=== PATIENT | female | born 1935 | race Caucasian/White ===

== ENCOUNTER 2016-10-07 14:57 | Observation (INO) ==
--- NOTE | 2016-10-07 15:25 | Emergency Department Note ---
Disposition Clinical Impression: Syncope and collapse Disposition: Admitted As Inpatient Condition: Fair Forms: ED Satisfaction Letter Time of Disposition: 17:44 (brent anaya) Syncope HPI - General Chief Complaint: ED Syncope Stated Complaint: Syncope / AMS Time Seen by Provider: 10/07/16 15:19 Source: patient Mode of arrival: ambulatory Limitations: physical limitation Nursing Notes Reviewed: Yes Vital Signs Reviewed: Yes - History of Present Illness HPI Narrative: 80-year-old female brought in by family for having increasing weakness debilitated state unable to get up and he related around the house he is unsure whether she possibly had a stroke she apparently had an episode where she collapsed some possible seizure activity said that she was trembling but she was alert and count conversations denies any diarrhea melena hematochezia weight gain pt is having poor appetitis Pt Subjective Complaint: collapsed Onset (ago): Just MORNING SHOW HOST Description of Event: other (weakness) Prodromal Symptoms: shortness of breath, nausea/vomiting, other (near syncope and pacer) Witnessed: yes - by bystander Context: during exertion Injuries Sustained Associated with Event: none Current Symptoms: back to baseline History: previous syncopal episode, history of CAD, pacemaker, prior work-ups Treatments prior to arrival: none - Related Data Home Medications Medication Instructions Recorded Confirmed Amiodarone HCl [Pacerone] 200 mg PO DAILY 10/07/16 10/07/16 Apixaban [Eliquis] 2.5 mg PO BID 10/07/16 10/07/16 Atorvastatin [Lipitor] 40 mg PO HS 10/07/16 10/07/16 Donepezil HCl [Aricept] 5 mg PO HS 10/07/16 10/07/16 Fludrocortisone Acetate [Florinef] 0.1 mg PO DAILY 10/07/16 10/07/16 Levothyroxine [Synthroid] 100 mcg PO DAILY 10/07/16 10/07/16 Allergies Allergy/AdvReac Type Severity Reaction Status Date / Time Penicillins Allergy Anaphylaxis Verified 10/07/16 15:03 All systems ED: reviewed and negative except as stated. Constitutional: Reports: weakness. Denies: fever, chills Eyes: Denies: vision change ENT ED: Denies: ear pain, throat pain Cardiovascular: Reports: dyspnea on exertion. Denies: chest pain, palpitations Respiratory: Denies: cough, dyspnea, wheezes Gastrointestinal: Denies: abdominal pain, nausea, vomiting Genitourinary: Denies: urgency, dysuria, frequency Musculoskeletal: Reports: myalgia. Denies: back pain, neck pain Integumentary: Denies: rash, abrasion Neurological: Reports: weakness. Denies: headache Psychiatric: Denies: anxiety Endocrine: Reports: fatigue, heat or cold intolerance Hematological/Lymphatic: Denies: easy bleeding Allergic/Immunologic: Denies: facial swelling Past Medical History - Past Medical History Attestation: Yes The following information was validated with the patient. Source: patient, old records reviewed, nursing notes reviewed Physical Exam - General Limitations: no limitations General appearance: alert, in no apparent distress, appears intoxicated, cachectic, other (fraii) - Head Head exam: atraumatic, normocephalic, normal inspection - Eye Eye exam: Present: normal appearance, PERRL, EOMI - ENT ENT exam: normal oropharynx, mucous membranes moist, TM's normal bilaterally, normal external ear exam - Neck Neck exam: Present: normal inspection, full ROM, trachea midline - Chest Chest inspection: Present: normal inspection, symmetric chest wall rise - Respiratory Respiratory exam: Present: normal lung sounds bilaterally - Cardiovascular Cardiovascular exam: Present: regular rate, normal rhythm, normal heart sounds - Abdominal Exam Abdominal exam: Present: soft, Non-Tender, normal bowel sounds - Extremities Exam Extremities exam: Present: normal inspection, full ROM, normal capillary refill , other (Or muscle wasting of the extremities she is able to follow commands with full twists it will hold her hands there is no drift noted with exam vascular is intact as well as neurosensory) - Expanded Upper Extremity Exam Shoulder exam: Present: normal inspection, full ROM Arm exam: Present: normal inspection, full ROM Elbow exam: Present: normal inspection, full ROM Forearm/Wrist exam: Present: normal inspection, full ROM Hand exam: Present: normal inspection, full ROM Vascular exam: Normal: capillary refill, radial pulse - Expanded Lower Extremity Exam Hip/Pelvis exam: Present: normal inspection, full ROM Upper leg exam: Present: normal inspection, full ROM Knee exam: Present: normal inspection, full ROM Lower leg exam: Present: normal inspection, full ROM Ankle exam: Present: normal inspection, full ROM Foot/toe exam: Present: normal inspection, full ROM Neurovascular/Tendon exam: Present: normal capillary refill, normal fine/light touch. Absent: motor deficit, sensory deficit, tendon deficit Gait: not tested/not observed - Back Exam Back exam: Present: normal inspection, full ROM - Neurological Exam Neurological exam: Present: alert, oriented X3, CN II-XII intact, normal gait. Absent: motor sensory deficit - Psychiatric Psychiatric exam: Present: flat affect - Skin Skin exam: Present: warm, dry, intact, normal color Course Course Narrative: Patient seen and examined and afterward it was not with all results back patient still barely able to get up and even bear any weight is grossly weak profoundly noted as a result the patient will be admitted for observation will have health and social care teacher contact the family and discuss further management the son is concerned about respiratory versus possibility of retirement placement will repeat the labs during the course like make sure there is not an underlying myocardial infarction CT of the head was done which showed no evidence of an acute stroke this does not exclude the possibility of TIA patient was admitted for observation Vital Signs Temperature 99.1 F 10/07/16 15:09 Pulse Rate 69 10/07/16 15:09 Respiratory Rate 14 10/07/16 15:09 Blood Pressure 89/50 10/07/16 15:09 O2 Sat by Pulse Oximetry 96 10/07/16 15:09 Temperature 99.1 F 10/07/16 15:09 Pulse Rate 69 10/07/16 15:09 Respiratory Rate 14 10/07/16 15:09 Blood Pressure 89/50 10/07/16 15:09 O2 Sat by Pulse Oximetry 96 10/07/16 15:09 Oxygen Delivery Oxygen Delivery Nasal Cannula Syncope - Differential Diagnosis Likely: syncope due to orthostatic hypotension, vasovagal syncope - Medical Records Medical records reviewed: Yes I reviewed the patient's medical records. - Lab Data Lab results reviewed: Yes I reviewed the patient's lab results. - Radiology Data Radiology results reviewed: Yes I reviewed the patient's radiology results. ITS Impressions Chest X-Ray 10/07/16 15:19 IMPRESSION: No acute process D/ / Ruben Cobian MD / Ruebn Cobian MD Interpreting Provider: Ruben Cobian MD Head CT 10/07/16 15:19 IMPRESSION: No acute intracranial abnormality. There is clinical concern for acute cerebral infarct, an MRI is a more sensitive study. D/ / Cecilia Arriaza Cha, MD / Cecilia Arriaza Cha, MD Interpreting Provider: Cecilia Arriaza Cha, MD - EKG Data EKG attestation: Yes I reviewed and interpreted this EKG. EKG results narrative: Rhythm NSR 1degree av block Heart Rate 65 MD 213 QRS 93 QT 459 Axes -30 Critical Care Time Critical Care Time: No
[2016-10-07 15:53] LABS: Basophils % 0.4 %; Eosinophils % 0.3 %; Hematocrit 40.5 % (35.3-44.9); Hemoglobin 13.2 g/dL (11.5-15.4); Immature Granulocytes % 0.4 % (0-4); Lymphocytes # 0.9 K/mcL (0.6-4.6); Lymphocytes % 9.5 %; Mean Corpuscular HGB Conc 32.6 g/dL (31.6-35.5); Mean Corpuscular Hemoglobin 31.2 pg (28.0-33.3); Mean Corpuscular Volume 95.7 fL (83.0-100.0); Mean Platelet Volume 9.3 fL (9.4-12.4); Monocytes # 0.6 K/mcL (0.0-1.3); Monocytes % 6.4 %; Neutrophils # 7.5 K/mcL (1.6-8.9); Platelet Count 312 K/mcL (140-400); Red Blood Count 4.23 M/mcL (3.82-4.97); Red Cell Distribution Width 14.5 % (11.5-14.5)
[2016-10-07 16:06] LABS: INR 1.7; Prothrombin Time 18.6 Seconds (9.4-12.1)
[2016-10-07 16:12] LABS: Alanine Aminotransferase 55 Units/L (0-55); Albumin 3.1 g/dL (3.5-5.0); Alkaline Phosphatase 119 Units/L (38-126); Aspartate Amino Transferase 56 Units/L (5-34); BUN/Creatinine Ratio 19 (6-26); Bilirubin,Total 0.5 mg/dL (0.2-1.2); Blood Urea Nitrogen 18 mg/dL (7-20); Calcium 8.8 mg/dL (8.6-10.8); Carbon Dioxide 21 mEq/L (19-29); Chloride 109 mEq/L (98-109); Globulin 3.2 g/dL (2.4-3.5); Glucose 118 mg/dL (70-99); Osmolality,Calculated 297 (280-300); Potassium 3.5 mEq/L (3.5-4.5); Sodium 142 mEq/L (136-145); Total Protein 6.3 g/dL (6.0-8.3); eGFR For African Americans > 60 (> 60); eGFR For Non-African Americans 57 (> 60)
[2016-10-07 17:12] LABS: Bilirubin,Urine Small (Negative); Blood,Urine Negative (Negative); Clarity,Urine Clear (Clear); Glucose,Urine (UA) Normal (Normal); Ketones,Urine Trace mg/dL (Negative); Leukocyte Esterase,Urine Negative (Negative); Nitrite,Urine Negative (Negative); PH,Urine 5.5 pH Units (5.0-8.0); Protein,Urine 30 mg/dL (Neg-Trace); Specific Gravity,Urine >= 1.030 (1.010-1.025)
[2016-10-07 17:19] LABS: Color,Urine Dark Yellow (Yellow)
[2016-10-07 17:21] LABS: RBC,Urine 0-3 per hpf (0-3); Squamous Epithelial Cell,Urine Few per lpf (None-Few); WBC,Urine 15-30 per hpf (0-3)
[2016-10-07 17:22] LABS: Amorphous Sediment,Urine Moderate (Few); Bacteria,Urine Few per hpf (None-Few); Granular Casts,Urine Few per lpf (None Seen); Hyaline Casts,Urine Few per lpf (None-Few); Mucus,Urine Few (Few); Renal Epithelial Cells,Urine Few per hpf (None-Few); Transitional Epi Cells,Urine Few per hpf (None-Few)
[2016-10-07] MEDS ORDERED: Naloxone 0.4 MG/ML INJ IVP PRN (18:51)
[2016-10-07] MEDS: 0.9 % Sodium Chloride 1,000 ML IVC SCH (21:20)
[2016-10-07] MEDS: APIXABAN 5 MG TABLET PO SCH (21:26)
[2016-10-08 03:23] LABS: INR 1.6; Prothrombin Time 17.5 Seconds (9.4-12.1)
[2016-10-08 03:25] LABS: Basophils # 0.1 K/mcL (0.0-0.2); Basophils % 0.8 %; Eosinophils # 0.1 K/mcL (0.0-0.6); Eosinophils % 1.4 %; Hematocrit 33.6 % (35.3-44.9); Hemoglobin 11.2 g/dL (11.5-15.4); Immature Granulocytes % 0.9 % (0-4); Lymphocytes # 1.7 K/mcL (0.6-4.6); Lymphocytes % 26.1 %; Mean Corpuscular HGB Conc 33.3 g/dL (31.6-35.5); Mean Corpuscular Hemoglobin 30.9 pg (28.0-33.3); Mean Corpuscular Volume 92.8 fL (83.0-100.0); Mean Platelet Volume 9.4 fL (9.4-12.4); Monocytes # 0.7 K/mcL (0.0-1.3); Monocytes % 10.1 %; Neutrophils # 4.1 K/mcL (1.6-8.9); Platelet Count 305 K/mcL (140-400); Red Blood Count 3.62 M/mcL (3.82-4.97); Red Cell Distribution Width 14.6 % (11.5-14.5); Segmented Neutrophils % 60.7 %
[2016-10-08 03:26] LABS: Activated Partial Thrombo Time 35.6 Seconds (26.0-36.0)
[2016-10-08 03:34] LABS: BUN/Creatinine Ratio 26 (6-26); Blood Urea Nitrogen 20 mg/dL (7-20); Calcium 8.3 mg/dL (8.6-10.8); Carbon Dioxide 25 mEq/L (19-29); Chloride 110 mEq/L (98-109); Glucose 84 mg/dL (70-99); Magnesium 1.6 mg/dL (1.6-2.6); Osmolality,Calculated 298 (280-300); Phosphorous 3.7 mg/dL (2.3-4.7); Potassium 3.6 mEq/L (3.5-4.5); Sodium 143 mEq/L (136-145); eGFR For African Americans > 60 (> 60); eGFR For Non-African Americans > 60 (> 60)
[2016-10-08] MEDS: *HR* Amiodarone 200 MG TABLET PO SCH (09:29)
[2016-10-08] MEDS: APIXABAN 5 MG TABLET PO SCH ×2 (09:29→20:41)
--- NOTE | 2016-10-08 11:30 | Electrocardiograph Report ---
[facility] Test Date: 2016-10-07 Pat Name: Lulu Leiva Department: 9201 Room: [facility] Gender: F Slagger: Lucius : 1935 Requested By: Claudia Feldman Order Number: [id number] Reading MD: Blaine Vela MD Measurements Intervals Manter Rate: 65 P: 80 AK: 213 QRS: -30 QRSD: 93 T: 53 QT: 459 QTc: 470 Interpretive Statements SINUS RHYTHM WITH FIRST DEGREE AV BLOCK BORDERLINE LEFT AXIS DEVIATION POOR R WAVE PROGRESSION Electronically Signed On 10-08-16 11:29:19 EST by Blaine Vela MD
--- NOTE | 2016-10-08 11:48 | Internal Med History&Physical ---
Date of Encounter: 10/08/16 Time of Encounter: 11:15 Assessment and Plan (1) Syncope and collapse Current visit: Yes Status: Acute Etiology is not obvious. She has been placed on telemetry. Orthostatic vital signs will be checked. (2) Orthostatic hypotension Current visit: Yes Status: Chronic Presumed based on Florinef use. We will check orthostatic vital signs. (3) Hypothyroidism Current visit: Yes Status: Chronic TSH was normal at 3.256 on admission labs. Continue present dose Synthroid Qualifiers: Hypothyroidism type: unspecified Qualified Code(s): E03.9 - Hypothyroidism , unspecified (4) Dementia Current visit: Yes Status: Chronic Will order MMSE and B12 level. Continue Aricept Qualifiers: Dementia type: unspecified type Dementia behavioral disturbance: without behavioral disturbance Qualified Code(s): F03.90 - Unspecified dementia without behavioral disturbance (5) Hyperlipidemia Current visit: Yes Status: Chronic Presumed based on Lipitor use. Continue Lipitor Qualifiers: Hyperlipidemia type: unspecified Qualified Code(s): E78.5 - Hyperlipidemia , unspecified Internal Medicine - H&P: HPI Chief complaint: Syncope Admitted From: Home Plans for Post Hospital Care: Home History of present illness: Ms. Leiva is a 80 year old female who was traveling with her nephew from [place] to [place] when she had a syncopal episode at a rest area in [facility]. Her nephew reports she also had "jerking" movements. She was brought to the emergency room and evaluated. She was admitted to [facility] for ongoing care needs. She has diagnosis of dementia and is on Aricept. She cannot supply any details of her history. She denies any "memory problems". She denies large distribution strokes or previous seizures or syncopal episodes. She denies pain at this time and states she feels back to her baseline. Past Med Surg Social Fam HX - Past Medical History Medical history: hyperlipidemia, hypertension Psychiatric history: no psych history - Past Surgical History Surgical History: pacemaker/AICD - Social History Smoking Status: Current every day smoker Smokeless Tobacco Status: No Alcohol use: none Drug use: none Internal Medicine - H&P: Meds Amiodarone HCl [Pacerone] 200 mg PO DAILY 10/07/16 [History] Apixaban [Eliquis] 2.5 mg PO BID 10/07/16 [History] Atorvastatin [Lipitor] 40 mg PO HS 10/07/16 [History] Donepezil HCl [Aricept] 5 mg PO HS 10/07/16 [History] Fludrocortisone Acetate [Florinef] 0.1 mg PO DAILY 10/07/16 [History] Levothyroxine [Synthroid] 100 mcg PO DAILY 10/07/16 [History] Allergies Penicillins Allergy (Verified 10/07/16 15:03) Anaphylaxis All Systems PM: A 10-system review of systems was performed and is negative for pertinent findings except as documented above in the HPI. Review of systems: Gen.: She states her weight has been stable the past few months Cardiovascular: She denies PA heart failure angina DVT or pulmonary embolus. She is on Florinef but does not know the reason for this. She denies atrial fibrillation but is on Pacerone and Eliquis Respiratory: She states she smoked from age 18 to her mid 30s. She denies chronic lung disease and does not use home oxygen. GI: She denies disorders of her liver gallbladder or exocrine pancreas : She denies hematuria dysuria or kidney stones Neurologic: as per history of present illness Endocrine: She has presumed hypothyroidism and hyperlipidemia based on her medication list. She denies diabetes. Hematology/oncology: She denies blood disorders cancers or anemia Psychiatric: She denies anxiety depression or other mental health issues Musk skeletal: She has DJD but denies specific bone joint or muscle disorders. - Constitutional Vitals: Temp Pulse Resp BP Pulse Ox 98.5 F 71 16 127/72 94 L 10/08/16 06:59 10/08/16 06:59 10/08/16 06:59 10/08/16 06:59 10/08/16 04:20 Exam: Gen.: She is a well-developed well-nourished female who appears in no severe distress at present time. HEENT: Head is atraumatic and normocephalic. Eyes: EOMI. There is no scleral icterus. Mouth: Mucosa is moist. Neck: Supple and nontender. There is no thyromegaly or adenopathy noted. Heart: Regular without murmurs gallops or ectopics. Lungs: No wheezes or crackles are heard. Abdomen: Soft and nontender. There are no masses or guarding noted. She has a longitudinal midline scar that is well-healed. She does not know what surgery was performed resulting in that scar. She has right upper quadrant oblique scar consistent with past cholecystectomy but she did not recall having the procedure either. Extremities: She has mild DJD changes of her hands. She has no cyanosis edema or clubbing noted. Neurologic: Mental status: She has impaired memory and insight. She does know her age but was confused and unable to recall many details of her history. She does not know why she came to the hospital. Cranial nerves: Smile is symmetric. Forehead wrinkles bilaterally. Tongue protrudes midline. EOMI. Motor: There is no pronator drift. Cerebellar: Finger to nose is intact bilaterally. Skin: Warm and dry Internal Med - H&P Results - Labs CBC & Chem 7: 10/08/16 03:05 10/08/16 03:05 Labs: Short CBC 10/08/16 Range/Units 03:05 WBC 6.7 (4.3-11.1) K/mcL Hgb 11.2 L D (11.5-15.4) g/dL Hct 33.6 L (35.3-44.9) % Plt Count 305 (140-400) K/mcL Neutrophils # 4.1 (1.6-8.9) K/mcL BMP 10/08/16 03:05 Sodium 143 Potassium 3.6 Chloride 110 H Carbon Dioxide 25 BUN 20 Creatinine 0.78 Glucose 84 Calcium 8.3 L Cardiac Enzymes 10/07/16 10/08/16 Range/Units 21:20 03:05 Troponin I 0.01 0.00 (0-0.03) ng/mL
[2016-10-09] MEDS: 0.9 % Sodium Chloride 1,000 ML IVC SCH (07:30)
[2016-10-09] MEDS: APIXABAN 5 MG TABLET PO SCH ×2 (09:29→22:06)
[2016-10-09] MEDS: *HR* Amiodarone 200 MG TABLET PO SCH (09:30)
--- NOTE | 2016-10-09 22:49 | Internal Med Progress Note ---
Date of Encounter: 10/09/16 Time of Encounter: 22:46 - Assessment and plan (1) Syncope and collapse Current Visit: Yes Status: Acute Assessment and plan: October 09. Continue telemetry, vital signs. Still unsure what led to the initial syncope. (2) Dementia Current Visit: Yes Status: Chronic Assessment and plan: October 09. Continue Aricept B12 level was normal and MMSE was 18 Qualifiers: Dementia type: unspecified type Dementia behavioral disturbance: without behavioral disturbance Qualified Code(s): F03.90 - Unspecified dementia without behavioral disturbance (3) Hyperlipidemia Current Visit: Yes Status: Chronic Assessment and plan: October 09. Stable continue Lipitor Qualifiers: Hyperlipidemia type: unspecified Qualified Code(s): E78.5 - Hyperlipidemia , unspecified (4) Hypothyroidism Current Visit: Yes Status: Chronic Assessment and plan: October 09. Stable continue levothyroxin Qualifiers: Hypothyroidism type: unspecified Qualified Code(s): E03.9 - Hypothyroidism , unspecified (5) Orthostatic hypotension Current Visit: Yes Status: Chronic Assessment and plan: October 09. Overall slightly improving. Patient education when she gets up to stand for a few seconds to her headache clears before she starts walking. - Time Spent With Patient 25 - 35 minutes (Therapeutic rapport) - Subjective Interval history: 80-year-old female presented to the emergency room after having a syncopal episode in [facility]. She is apparently traveling with her nephew from [place] to [place]. Dr. Motley admitted her to Dr. Issa's service. Refills she seems stronger. Her blood pressure was hypotensive when she first came in but now it is coming back up there does not seem to be a component of orthostasis to it is so concerned infection blood cultures and urine cultures were negative. Her INR was 1.6 hemoglobin 11.2. She is getting stronger questions whether or not she will go to a extended care facility or if her nephew take her home. Answered questions addressed her concerns. - Constitutional Vitals: Temp Pulse Resp BP Pulse Ox 98.7 F 63 16 133/62 97 10/09/16 19:24 10/09/16 19:24 10/09/16 19:24 10/09/16 19:24 10/09/16 19:24 Exam: General: Alert and oriented, no acute distress Lungs: Clear to auscultation bilaterally without wheezing or crackles Heart: Regular rate and rythms without murmer or rubs Abdomen: Soft, nontender, Extremities: no edema, redness Internal Medicine: Result - Labs CBC & Chem 7: 10/08/16 03:05 10/08/16 03:05 - ABG Interpretation ABG results: PT/INR, D-dimer PT 17.5 Seconds (9.4-12.1) H 10/08/16 03:05 Consult Discharge Plan - Plan Referrals: NO,PCP [Primary Care Provider] - 1 week
[2016-10-10] MEDS: *HR* Amiodarone 200 MG TABLET PO SCH (10:32)
[2016-10-10] MEDS: APIXABAN 5 MG TABLET PO SCH ×2 (10:46→21:32)
--- NOTE | 2016-10-10 20:38 | Internal Med Progress Note ---
Date of Encounter: 10/10/16 Time of Encounter: 20:29 - Assessment and plan (1) Syncope and collapse Current Visit: Yes Status: Acute Assessment and plan: October 09. Continue telemetry, vital signs. Still unsure what led to the initial syncope. October 10. Change the Aricept and Namenda which could have been part of the syncope because of the interaction with Cordarone (2) Orthostatic hypotension Current Visit: Yes Status: Chronic Assessment and plan: October 09. Overall slightly improving. Patient education when she gets up to stand for a few seconds to her headache clears before she starts walking. October 10. Stop the Aricept. (3) Dementia Current Visit: Yes Status: Chronic Assessment and plan: October 09. Continue Aricept B12 level was normal and MMSE was 18 October 10. Switched Aricept to Namenda Qualifiers: Dementia type: unspecified type Dementia behavioral disturbance: without behavioral disturbance Qualified Code(s): F03.90 - Unspecified dementia without behavioral disturbance (4) Hyperlipidemia Current Visit: Yes Status: Chronic Assessment and plan: October 09. Stable continue Lipitor October 10. Continue Lipitor Qualifiers: Hyperlipidemia type: unspecified Qualified Code(s): E78.5 - Hyperlipidemia , unspecified (5) Hypothyroidism Current Visit: Yes Status: Chronic Assessment and plan: October 09. Stable continue levothyroxin October 10. Continue Synthroid Qualifiers: Hypothyroidism type: unspecified Qualified Code(s): E03.9 - Hypothyroidism , unspecified - Time Spent With Patient 25 - 35 minutes - Subjective Interval history: 80-year-old female presented to the emergency room after having a syncopal episode in [facility]. She is apparently traveling with her nephew from [place] to [place]. Dr. Motley admitted her to Dr. Issa's service. Refills she seems stronger. Her blood pressure was hypotensive when she first came in but now it is coming back up there does not seem to be a component of orthostasis to it is so concerned infection blood cultures and urine cultures were negative. Her INR was 1.6 hemoglobin 11.2. She is getting stronger questions whether or not she will go to a extended care facility or if her nephew take her home. Answered questions addressed her concerns. October 10. Patient denies any chest pain or shortness of breath. She reports that she did not get lightheaded today when she sat up and try to get up. I discussed with a pharmacist and she let me know that Cordarone and Aricept have a interaction that can increase hypotension and syncope. Apparently it is a class effect but Namenda is another alternative. I switched her from Aricept to Namenda today. I reviewed her recent labs that showed hemoglobin of 11.2 I, INR 1.6, chloride of 110, calcium 8.3 order follow-up labs. Answered questions addressed her concerns - Constitutional Vitals: Temp Pulse Resp BP Pulse Ox 97.5 F L 71 16 163/76 95 10/10/16 19:05 10/10/16 19:05 10/10/16 19:05 10/10/16 19:05 10/10/16 19:05 Exam: General: Alert and oriented, no acute distress Lungs: Clear to auscultation bilaterally without wheezing or crackles Heart: Regular rate and rythms without murmer or rubs Abdomen: Soft, nontender, Extremities: no edema, redness Internal Medicine: Result - Labs CBC & Chem 7: 10/08/16 03:05 10/08/16 03:05 - ABG Interpretation ABG results: PT/INR, D-dimer PT 17.5 Seconds (9.4-12.1) H 10/08/16 03:05 Consult Discharge Plan - Plan Referrals: NO,PCP [Primary Care Provider] - 1 week
[2016-10-11 06:54] LABS: Basophils # 0.1 K/mcL (0.0-0.2); Eosinophils # 0.1 K/mcL (0.0-0.6); Eosinophils % 2.1 %; Hematocrit 35.8 % (35.3-44.9); Hemoglobin 12.1 g/dL (11.5-15.4); Immature Granulocytes % 0.3 % (0-4); Lymphocytes # 1.7 K/mcL (0.6-4.6); Lymphocytes % 27.9 %; Mean Corpuscular HGB Conc 33.8 g/dL (31.6-35.5); Mean Corpuscular Hemoglobin 30.9 pg (28.0-33.3); Mean Corpuscular Volume 91.3 fL (83.0-100.0); Mean Platelet Volume 9.6 fL (9.4-12.4); Monocytes # 0.6 K/mcL (0.0-1.3); Monocytes % 9.2 %; Neutrophils # 3.7 K/mcL (1.6-8.9); Platelet Count 302 K/mcL (140-400); Red Blood Count 3.92 M/mcL (3.82-4.97); Red Cell Distribution Width 14.4 % (11.5-14.5); Segmented Neutrophils % 59.5 %
[2016-10-11 07:03] LABS: INR 1.4; Prothrombin Time 14.8 Seconds (9.4-12.1)
[2016-10-11 07:07] LABS: BUN/Creatinine Ratio 14 (6-26); Blood Urea Nitrogen 10 mg/dL (7-20); Calcium 8.8 mg/dL (8.6-10.8); Carbon Dioxide 25 mEq/L (19-29); Chloride 109 mEq/L (98-109); Glucose 81 mg/dL (70-99); Osmolality,Calculated 296 (280-300); Potassium 3.2 mEq/L (3.5-4.5); Sodium 144 mEq/L (136-145); eGFR For African Americans > 60 (> 60); eGFR For Non-African Americans > 60 (> 60)
[2016-10-11] MEDS: APIXABAN 5 MG TABLET PO SCH ×2 (10:42→20:02)
[2016-10-11] MEDS: *HR* Amiodarone 200 MG TABLET PO SCH (10:42)
--- NOTE | 2016-10-11 16:07 | Internal Med Progress Note ---
Date of Encounter: 10/11/16 Time of Encounter: 16:04 - Assessment and plan (1) Syncope and collapse Current Visit: Yes Status: Acute Assessment and plan: October 09. Continue telemetry, vital signs. Still unsure what led to the initial syncope. October 10. Change the Aricept and Namenda which could have been part of the syncope because of the interaction with Cordarone October 11. Tolerating the Namenda, continue the Cordarone (2) Orthostatic hypotension Current Visit: Yes Status: Chronic Assessment and plan: October 09. Overall slightly improving. Patient education when she gets up to stand for a few seconds to her headache clears before she starts walking. October 10. Stop the Aricept. Annual a . Aricept has been stopped (3) Dementia Current Visit: Yes Status: Chronic Assessment and plan: October 09. Continue Aricept B12 level was normal and MMSE was 18 October 10. Switched Aricept to Namenda October 11. Continue Namenda Qualifiers: Dementia type: unspecified type Dementia behavioral disturbance: without behavioral disturbance Qualified Code(s): F03.90 - Unspecified dementia without behavioral disturbance (4) Hyperlipidemia Current Visit: Yes Status: Chronic Assessment and plan: October 09. Stable continue Lipitor October 10. Continue Lipitor October 11. Continue Lipitor Qualifiers: Hyperlipidemia type: unspecified Qualified Code(s): E78.5 - Hyperlipidemia , unspecified (5) Hypothyroidism Current Visit: Yes Status: Chronic Assessment and plan: October 09. Stable continue levothyroxin October 10. Continue Synthroid October 11. Continue Synthroid Qualifiers: Hypothyroidism type: unspecified Qualified Code(s): E03.9 - Hypothyroidism , unspecified - Time Spent With Patient 25 - 35 minutes - Subjective Interval history: 80-year-old female presented to the emergency room after having a syncopal episode in [facility]. She is apparently traveling with her nephew from [place] to [place]. Dr. Motley admitted her to Dr. Issa's service. Refills she seems stronger. Her blood pressure was hypotensive when she first came in but now it is coming back up there does not seem to be a component of orthostasis to it is so concerned infection blood cultures and urine cultures were negative. Her INR was 1.6 hemoglobin 11.2. She is getting stronger questions whether or not she will go to a extended care facility or if her nephew take her home. Answered questions addressed her concerns. October 10. Patient denies any chest pain or shortness of breath. She reports that she did not get lightheaded today when she sat up and try to get up. I discussed with a pharmacist and she let me know that Cordarone and Aricept have a interaction that can increase hypotension and syncope. Apparently it is a class effect but Namenda is another alternative. I switched her from Aricept to Namenda today. I reviewed her recent labs that showed hemoglobin of 11.2 I, INR 1.6, chloride of 110, calcium 8.3 order follow-up labs. Answered questions addressed her concerns October 11. Patient denies any chest pain or shortness of breath. Likely lightheaded. Discussed with the pharmacist her potassium was slightly down gave her 40 mg 1 time dose. Follow-up labs had questions about sure the plan. Talked to the nephew Dexter Ye and I let him know about the switch from Aricept and Namenda and the treatment plan. He is trying to get her into a senior living. He wants her to go with the rehabilitation but potentially should stay long-term. Discussed with the patient answered her questions related up is up to the geriatric social work professor tomorrow and her nephew to see where he wants her to go and if it can be arranged. Dr. Issa will start covering again tomorrow. Answered questions concerns addressed - Constitutional Vitals: Temp Pulse Resp BP Pulse Ox 98.0 F 69 16 134/76 97 10/11/16 12:00 10/11/16 12:00 10/11/16 12:00 10/11/16 12:00 10/11/16 12:00 Exam: General: Alert and oriented, no acute distress Lungs: Clear to auscultation bilaterally without wheezing or crackles Heart: Regular rate and rythms without murmer or rubs Abdomen: Soft, nontender, Extremities: no edema, redness Internal Medicine: Result - Labs CBC & Chem 7: 10/11/16 05:48 10/11/16 05:48 Labs: Short CBC 10/11/16 Range/Units 05:48 WBC 6.2 (4.3-11.1) K/mcL Hgb 12.1 (11.5-15.4) g/dL Hct 35.8 (35.3-44.9) % Plt Count 302 (140-400) K/mcL Neutrophils # 3.7 (1.6-8.9) K/mcL BMP 10/11/16 05:48 Sodium 144 Potassium 3.2 L Chloride 109 Carbon Dioxide 25 BUN 10 Creatinine 0.69 Glucose 81 Calcium 8.8 - ABG Interpretation ABG results: PT/INR, D-dimer PT 14.8 Seconds (9.4-12.1) H 10/11/16 05:48 Consult Discharge Plan - Plan Referrals: NO,PCP [Primary Care Provider] - 1 week
[2016-10-12 07:01] LABS: INR 1.3
[2016-10-12 07:06] LABS: BUN/Creatinine Ratio 18 (6-26); Blood Urea Nitrogen 15 mg/dL (7-20); Calcium 8.8 mg/dL (8.6-10.8); Carbon Dioxide 25 mEq/L (19-29); Chloride 110 mEq/L (98-109); Glucose 78 mg/dL (70-99); Osmolality,Calculated 296 (280-300); Sodium 143 mEq/L (136-145); eGFR For African Americans > 60 (> 60); eGFR For Non-African Americans > 60 (> 60)
--- NOTE | 2016-10-12 10:16 | Internal Med Progress Note ---
Date of Encounter: 10/12/16 Time of Encounter: 10:00 - Assessment and plan (1) Syncope and collapse Current Visit: Yes Status: Acute Assessment and plan: October 09. Continue telemetry, vital signs. Still unsure what led to the initial syncope. October 10. Change the Aricept and Namenda which could have been part of the syncope because of the interaction with Cordarone October 11. Tolerating the Namenda, continue the Cordarone October 12. Orthostatic vital signs done October 10 showed blood pressure dropped from 148/80 lying to 104/64 standing. Will scribe DENISSE hose and increased dose of Florinef. (2) Orthostatic hypotension Current Visit: Yes Status: Chronic Assessment and plan: October 09. Overall slightly improving. Patient education when she gets up to stand for a few seconds to her headache clears before she starts walking. October 10. Stop the Aricept. Annual a . Aricept has been stopped October 12. Will increase Florinef and add DENISSE hose (3) Hypothyroidism Current Visit: Yes Status: Chronic Assessment and plan: October 09. Stable continue levothyroxin October 10. Continue Synthroid October 11. Continue Synthroid Qualifiers: Hypothyroidism type: unspecified Qualified Code(s): E03.9 - Hypothyroidism , unspecified (4) Dementia Current Visit: Yes Status: Chronic Assessment and plan: October 09. Continue Aricept B12 level was normal and MMSE was 18 October 10. Switched Aricept to Namenda October 11. Continue Namenda Qualifiers: Dementia type: unspecified type Dementia behavioral disturbance: without behavioral disturbance Qualified Code(s): F03.90 - Unspecified dementia without behavioral disturbance (5) Hyperlipidemia Current Visit: Yes Status: Chronic Assessment and plan: October 09. Stable continue Lipitor October 10. Continue Lipitor October 11. Continue Lipitor Qualifiers: Hyperlipidemia type: unspecified Qualified Code(s): E78.5 - Hyperlipidemia , unspecified (6) Atrial fibrillation Current Visit: Yes Status: Chronic Assessment and plan: October 12. Presumed based on use of amiodarone and Eliquis. She remains in normal sinus rhythm. Continue present treatment Qualifiers: Atrial fibrillation type: paroxysmal Qualified Code(s): I48.0 - Paroxysmal atrial fibrillation - Subjective Interval history: October 12. She has no new complaints - Constitutional Vitals: Temp Pulse Resp BP Pulse Ox 97.3 F L 60 16 128/72 94 L 10/12/16 06:00 10/12/16 06:00 10/12/16 06:00 10/12/16 06:00 10/12/16 06:00 Exam: She is resting comfortably in bed. Her affect is bright and cheerful. Extremities show no edema. I reviewed her medications and lab results. Internal Medicine: Result - Labs CBC & Chem 7: 10/11/16 05:48 10/12/16 05:55 Labs: BMP 10/12/16 05:55 Sodium 143 Potassium 4.0 Chloride 110 H Carbon Dioxide 25 BUN 15 Creatinine 0.82 Glucose 78 Calcium 8.8 - ABG Interpretation ABG results: PT/INR, D-dimer PT 14.0 Seconds (9.4-12.1) H 10/12/16 05:55 Consult Discharge Plan - Plan Referrals: NO,PCP [Primary Care Provider] - 1 week
[2016-10-12] MEDS: APIXABAN 5 MG TABLET PO SCH ×2 (11:03→20:30)
[2016-10-12] MEDS: *HR* Amiodarone 200 MG TABLET PO SCH (11:04)
[2016-10-13] MEDS: *HR* Amiodarone 200 MG TABLET PO SCH (09:00)
[2016-10-13] MEDS: APIXABAN 5 MG TABLET PO SCH (09:00)
[2016-10-13 10:37] VITALS: BP 116/73
--- NOTE | 2016-10-13 11:09 | Discharge Summary ---
Date of Encounter: 10/13/16 Time of Encounter: 11:00 - Discharge Diagnosis (1) Syncope and collapse Priority: Primary Status: Acute (2) Orthostatic hypotension Priority: Secondary Status: Chronic (3) Hypothyroidism Priority: Secondary Status: Chronic Qualifiers: Hypothyroidism type: unspecified Qualified Code(s): E03.9 - Hypothyroidism , unspecified (4) Dementia Priority: Secondary Status: Chronic Qualifiers: Dementia type: unspecified type Dementia behavioral disturbance: without behavioral disturbance Qualified Code(s): F03.90 - Unspecified dementia without behavioral disturbance (5) Hyperlipidemia Priority: Secondary Status: Chronic Qualifiers: Hyperlipidemia type: unspecified Qualified Code(s): E78.5 - Hyperlipidemia , unspecified (6) Atrial fibrillation Priority: Secondary Status: Chronic Qualifiers: Atrial fibrillation type: paroxysmal Qualified Code(s): I48.0 - Paroxysmal atrial fibrillation - Discharge Medications Prescriptions: Memantine [Namenda] 5 mg PO BID #14 tablet Home Medications: Amiodarone HCl [Pacerone] 200 mg PO DAILY 10/07/16 [History] Apixaban [Eliquis] 2.5 mg PO BID 10/07/16 [History] Atorvastatin [Lipitor] 40 mg PO HS 10/07/16 [History] Levothyroxine [Synthroid] 100 mcg PO DAILY 10/07/16 [History] Fludrocortisone Acetate [Florinef] 0.2 mg PO DAILY #60 10/13/16 [Rx] Memantine [Namenda] 5 mg PO BID #14 tablet 10/13/16 [Rx] Allergies/Adverse Reactions: Allergies Penicillins Allergy (Verified 10/07/16 15:03) Anaphylaxis Date of admission: 10/07/16 18:18 Primary care physician: PCP NO - Patient Status Disposition: Home, Self-Care Condition: Fair Overall status at discharge: patient is progressing back to baseline - Discharge Instructions Follow Up With: NO,PCP [Primary Care Provider] - 1 week - Diet and Activity Activity: resume usual activities as tolerated Diet: advance to your usual diet Hospital course: Ms. Leiva is a 80 year old female who was traveling with her nephew from [place] to [place] when she had a syncopal episode at a rest area in [facility]. Her nephew reports she also had "jerking" movements. She was brought to the emergency room and evaluated. She was admitted to [facility] floor for ongoing care needs. Initial orders were written by the emergency room physician. I saw her on October 08 and performed history and physical. She had no further syncopal or near syncopal episodes. There was no seizure activity noted. She was initially ordered her home dose of Florinef. Orthostatic vital signs were checked and showed significant blood pressure drop from 148/80 lying to 104 /64 standing. I increased Florinef to 0.2 mg daily and prescribed DENISSE hose. These will be continued at discharge. MMSE exam showed a score of 18/30. She was changed to Namenda from Aricept because of possible hypotensive effect of Aricept per pharmacy recommendation. There were no other new problems and on October 13 she was felt stable for discharge. It was learned she had [place] Medicaid application pending so no further efforts were made to obtain [place] Medicaid. She should follow with her primary care provider within one week. - Time Spent with Patient Total time spent providing and/or coordinating discharge services: - Constitutional Vitals: Temp Pulse Resp BP Pulse Ox 98.2 F 60 16 116/73 97 10/13/16 10:37 10/13/16 10:37 10/13/16 10:37 10/13/16 10:37 10/13/16 10:37 - VTE Documentation of Mechanical Device: Graduated compression elastic hosiery
== END 2016-10-13 16:27 | disposition home or self-care (01) ==
LOC: EMEROOPIK 14:57 → INPPIK 14:57
PROVIDERS: ADMIT Internal Medicine; ATTEND Internal Medicine